=== PATIENT | female | born 1960 | race Caucasian/White ===

== ENCOUNTER → 2017-03-17 | Day surgery (SDC) | payer SELFPAY ==
[~2017-03-17] MED LIST: CALCIUM 600 +1 EAC7 PO; VITAMIN B12 PO; VITAMIN C500 M1 PO; ZYRTEC10 MG PO
== END | disposition home or self-care (01) ==
LOC: OR 07:13
PROVIDERS: Internal Medicine Gastroenterology
PROC: 0DBP8ZX Excision of Rectum, Via Natural or Artificial Opening Endoscopic, Diagnostic (ICD-10-PCS; 2017-03-17)
PROC: 0DBE8ZX Excision of Large Intestine, Via Natural or Artificial Opening Endoscopic, Diagnostic (ICD-10-PCS; 2017-03-17)
PROC: 0DB68ZX Excision of Stomach, Via Natural or Artificial Opening Endoscopic, Diagnostic (ICD-10-PCS; principal; 2017-03-17 12:15)
PROC: 0DBB8ZX Excision of Ileum, Via Natural or Artificial Opening Endoscopic, Diagnostic (ICD-10-PCS; 2017-03-17 12:15)
DX: K62.1 Rectal polyp (principal); K59.8 Other specified functional intestinal disorders; K64.1 Second degree hemorrhoids; K64.4 Residual hemorrhoidal skin tags; K60.2 Anal fissure, unspecified; R19.7 Diarrhea, unspecified; K59.09 Other constipation; E66.3 Overweight; M19.90 Unspecified osteoarthritis, unspecified site; G43.909 Migraine, unspecified, not intractable, without status migrainosus; Z87.19 Personal history of other diseases of the digestive system; Z79.899 Other long term (current) drug therapy; Z98.51 Tubal ligation status; Z90.49 Acquired absence of other specified parts of digestive tract
CPT/HCPCS: J7030

== ENCOUNTER → 2022-07-11 | Outpatient (CLI) | payer OTHER | LOC: LAB 13:13 | DX: R30.0 Dysuria (principal) | CPT/HCPCS: 81001; 87086 ==

== ENCOUNTER → 2022-07-14 | Outpatient (CLI) | payer OTHER ==
[2022-07-14 12:16] LABS: BUN/CREATININE RATIO 18 (0-10)
== END ==
LOC: LAB 08:04
PROVIDERS: Family Medicine
DX: Z13.220 Encounter for screening for lipoid disorders (principal); R94.4 Abnormal results of kidney function studies
CPT/HCPCS: 36415; 80053; 80061

== ENCOUNTER → 2022-07-22 | Outpatient (CLI) | payer OTHER | LOC: LAB 10:50 | DX: R30.0 Dysuria (principal); Z98.890 Other specified postprocedural states | CPT/HCPCS: 87086 ==